=== PATIENT | female | born 1965 | race Caucasian/White ===

== ENCOUNTER 2018-03-15 14:48 | Outpatient (CLI) | payer BC, SELFPAY ==
--- NOTE | 2018-03-15 10:44 | DI.RAD_ITS ---
SYMPTOM/DIAGNOSIS: WRIST PAIN, M25.539 RIGHT WRIST: No fracture or other bony abnormality seen. The carpal bones are normally aligned. There are no significant degenerative changes or evidence of bony erosions. IMPRESSION: Negative right wrist.
--- NOTE | 2018-03-15 10:44 | DI.RAD_ITS ---
SYMPTOM/DIAGNOSIS: SHOULDER PAIN, M25.519 RIGHT SHOULDER: There is no significant A-C joint spurring. The glenohumeral joint is well maintained. No tendon or joint space calcifications are seen. IMPRESSION: Negative right shoulder
--- NOTE | 2018-03-15 10:44 | DI.RAD_ITS ---
SYMPTOM/DIAGNOSIS: WRIST PAIN, M25.539 LEFT WRIST: The bones are normally mineralized. No bony erosions are seen. The carpal bones are normally aligned. There is a positive ulnar variance. IMPRESSION: Positive ulnar variance
== END 2018-03-15 15:08 ==
PROVIDERS: PCP Emergency Medicine; Visit Provider Emergency Medicine
DX: M25.532 Pain in left wrist (principal); M25.832 Other specified joint disorders, left wrist; M25.531 Pain in right wrist; M25.511 Pain in right shoulder
CPT/HCPCS: 73030; 73110

== ENCOUNTER 2018-11-22 09:16 | Outpatient (CLI) | payer BC, SELFPAY ==
[2018-11-22 13:03] LABS: Calculated LDL 163 mg/dL; Cholesterol 232 mg/dL (50-200); HDL Cholesterol 57 mg/dL (40-60); Triglyceride 60 mg/dL (30-150)
== END 2018-11-22 09:36 ==
PROVIDERS: PCP Emergency Medicine; Visit Provider Emergency Medicine
DX: Z00.00 Encounter for general adult medical examination without abnormal findings (principal); Z13.220 Encounter for screening for lipoid disorders
CPT/HCPCS: 36415; 80061; 83721

== ENCOUNTER 2018-11-22 13:21 | Outpatient (REF) | payer BC, SELFPAY ==
--- NOTE | 2018-11-22 11:45 | PAPFT_PTH ---
PATIENT: Rahel Crow LOC: [facility] U#:[id number] AGE/SX: 53/F ROOM: RE11/22/[address]: MED Rudolph : 1965 BED: DIS: 11/22/2018 SPEC #: [id number] RECD: 11/22/18 17:45 STATUS: SUZI REQ #: [id number] KENYA: 11/22/18 11:[address]: Heidi Hernandez DEPT: [facility] Cytology RECD BY: Harriett Doherty ENTERED: 11/22/18 17:46 SP TYPE: PAPFT SAMEER DR: Aftab Hernandez, Tissues: 1 - CX/ENDOCX FOR PAP SMEARS Procedures: PAP THIN PREP/UVM Screening HPV DNA PROBE Comments: [id number]
[2018-11-24 15:27] LABS: Chlamydia Result Negative; GC Result Negative; Specimen Description CERVIX
== END 2018-11-22 13:41 ==
LOC: LBN 13:21
PROVIDERS: PCP Emergency Medicine; Visit Provider Nurse Practitioner Family
DX: Z11.3 Encounter for screening for infections with a predominantly sexual mode of transmission (principal); Z12.4 Encounter for screening for malignant neoplasm of cervix; Z11.51 Encounter for screening for human papillomavirus (HPV)
CPT/HCPCS: 87491; 87591; 88142; 87624

== ENCOUNTER 2019-01-04 01:18 | Outpatient (CLI) | payer BC, SELFPAY ==
--- NOTE | 2019-01-04 13:50 | DI.MAMMO_ITS ---
EXAM: MAMMO SCREENING CLINICAL HISTORY: screening,z12.31,encounter for general adult med exam,Z00.00. TECHNIQUE: Mammograms were interpreted according to the usual protocol including computer analysis w [facility] CAD system, tomosynthesis and C-view imaging. COMPARISON: No exams were available for comparison FINDINGS: The breasts are heterogeneously dense. No dominant mass or clumped microcalcification identified in either breast. There is an area of nodularity projected in the medial aspect of left breast on CC view. Additional mammographic views requested to include CC spot compression view. Breast ultrasound recommended as w ell. IMPRESSION: Additional mammographic views of the left breast and left breast ultrasound requested as described ab manjit to evaluate an area of nodularity identified on today's baseline examination. Category 0. Breast density category C. BI-RADS Cat 0 - Assessment Incomplete: Need additional imaging evaluation. Breast Density - Category C - Heterogeneously dense.
== END 2019-01-04 01:38 ==
PROVIDERS: PCP Emergency Medicine; Visit Provider Emergency Medicine
DX: Z00.00 Encounter for general adult medical examination without abnormal findings (principal); Z12.31 Encounter for screening mammogram for malignant neoplasm of breast; R92.8 Other abnormal and inconclusive findings on diagnostic imaging of breast
CPT/HCPCS: 77063; 77067

== ENCOUNTER 2019-01-11 01:24 | Outpatient (CLI) | payer BC, SELFPAY ==
--- NOTE | 2019-01-11 09:12 | DI.MAMMO_ITS ---
EXAM: MG MAMMO SCREEN CALL BACK UNI CLINICAL HISTORY: NODULARITY PROJECTED IN MEDIAL ASPECT LT BREAST. TECHNIQUE: Additional images are interpreted according to the usual protocol including tomosynthesis and 2D imaging. FINDINGS: The breast tissue is of moderate radiodensity. Very small, well-circumscribed ovoid density is noted in the medial portion of the left breast. There are no suspicious calcifications. IMPRESSION: Small density medial left breast. Further evaluation with ultrasound is recommended. BI-RADS Cat 3 - 6 month - Probably Benign Finding: Recommend follow-up mammography in 6 months. Breast Density - Category B - Scattered areas of fibroglandular density.
--- NOTE | 2019-01-11 09:22 | DI.US_ITS ---
EXAM: US BREAST LT LIMITED CLINICAL HISTORY: NODULARITY PROJECTED IN MEDICAL ASPECT LT BREAST. TECHNIQUE: Ultrasound performed using standard protocol. FINDINGS: The left breast ultrasound does not demonstrate discrete area of nodularity or cyst in the medial por tion of the left breast. IMPRESSION: Follow-up evaluation of this patient with repeat mammograms and if appropriate, ultrasound in 6 month s is recommended.
== END 2019-01-11 01:44 ==
PROVIDERS: PCP Emergency Medicine; Visit Provider Emergency Medicine
DX: Z12.31 Encounter for screening mammogram for malignant neoplasm of breast (principal); R92.8 Other abnormal and inconclusive findings on diagnostic imaging of breast; N60.82 Other benign mammary dysplasias of left breast
CPT/HCPCS: 76642; 77063; 77067

== ENCOUNTER 2019-07-06 02:07 | Outpatient (CLI) | payer MEDICAID, SELFPAY ==
--- NOTE | 2019-07-06 06:30 | DI.MAMMO_ITS ---
EXAM: MG MAMMO DIAGNOSTIC UNI CLINICAL HISTORY: follow up abnormal mammo,6 MO F/U, R92.8 TECHNIQUE: Mammograms were interpreted according to the usual protocol including computer analysis w [employer] CAD system, tomosynthesis and C-view imaging. COMPARISON: January 2019 FINDINGS: Today's unilateral left breast mammogram was obtained to follow a well-circumscribed area of nodulari ty of the medial aspect of left breast seen on prior examination of January 2019. There has been no interval change in appearance in comparison with the prior study. No new mass or clumped microcalcif ication identified in the left breast. IMPRESSION: No specific evidence of malignancy at this time. I would suggest that routine screening examinations resume with a bilateral mammogram in 6 months. BI-RADS Cat 3 - 6 month - Probably Benign Finding: Recommend follow-up mammography in 6 months Breast Density - Category B - Scattered areas of fibroglandular density
== END 2019-07-06 02:27 ==
PROVIDERS: PCP Emergency Medicine; Visit Provider Emergency Medicine
DX: Z12.31 Encounter for screening mammogram for malignant neoplasm of breast (principal); R92.8 Other abnormal and inconclusive findings on diagnostic imaging of breast; N60.82 Other benign mammary dysplasias of left breast
CPT/HCPCS: 77061; 77065; G0279

== ENCOUNTER 2019-11-20 01:03 | Outpatient (CLI) | payer OTHER, SELFPAY ==
--- NOTE | 2019-11-20 15:45 | DI.MRI_ITS ---
EXAM: MR THORACIC SPINE WO CLINICAL HISTORY: chronic thoracic back pain,g89.29,m54.6. TECHNIQUE: Multiplanar multisequence MRI of the Thoracic spine was performed. CONTRAST MATERIAL: IV noncontrast COMPARISON: No exams were available for comparison FINDINGS: Bones: The vertebral body heights are well maintained. Alignment is satisfactory. The signal characte ristics are unremarkable. Cord: The thoracic cord is normal size and signal intensity. No intrinsic cord lesion is present. Co nus medullaris appears normal. Discs: No disc herniation or bulge is present. There are minimal endplate osteophytes. Soft tissues: Normal. IMPRESSION: Minimal degenerative changes. DATA REPOSITORY:
== END 2019-11-20 01:23 ==
PROVIDERS: PCP Emergency Medicine; Visit Provider Emergency Medicine
DX: M54.6 Pain in thoracic spine (principal); G89.29 Other chronic pain; M47.818 Spondylosis without myelopathy or radiculopathy, sacral and sacrococcygeal region
CPT/HCPCS: 72146

== ENCOUNTER 2020-07-03 08:26 | Outpatient (CLI) | payer MEDICAID, SELFPAY ==
[2020-07-04 14:17] LABS: COVID-19 RT-PCR UVMMC Result Negative (Negative)
== END 2020-07-03 08:27 | disposition home or self-care (01) ==
PROVIDERS: PCP Emergency Medicine; Visit Provider Emergency Medicine
DX: Z20.822 Contact with and (suspected) exposure to COVID-19 (principal)
CPT/HCPCS: U0003

== ENCOUNTER 2020-10-03 15:34 | Outpatient (REF) | payer MEDICAID, SELFPAY ==
[2020-10-03 15:44] LABS: Abs Immature Grans 0.01 10^3/uL (0.0-0.06); Absolute Basophil Count 0.04 10^3/uL (0.0-0.2); Absolute Eosinophil Count 0.18 10^3/uL (0.0-0.7); Absolute Lymphocyte Count 1.88 10^3/uL (1.2-3.4); Absolute Monocyte Count 0.59 10^3/uL (0.1-0.8); Absolute Neutrophil Count 2.24 10^3/uL (1.2-6.7); Basophils % 0.8; Eosinophils % 3.6; HCT 38.2 % (36.0-46.0); HGB 12.7 g/dL (11.2-15.7); Immature Grans % 0.2; Lymphocytes % 38.1; MCH 30.7 pg (27.0-33.0); MCHC 33.2 % (32.0-36.0); MCV 92.3 fL (80-95); MPV 11.3 fL (8.0-11.0); Monocytes % 11.9; Neutrophils % 45.4; Nucleated RBC 0 %; Platelet Count 205 10^3/uL (130-400); RBC 4.14 10^6/uL (3.93-5.22); RDW 12.4 % (11.7-14.6); WBC 4.94 10^3/uL (4.4-10.8)
== END 2020-10-03 15:35 | disposition home or self-care (01) ==
LOC: LBN 15:34
PROVIDERS: Surgery; PCP Emergency Medicine; Visit Provider Family Medicine
DX: K51.911 Ulcerative colitis, unspecified with rectal bleeding (principal)
CPT/HCPCS: 85025; 86140

== ENCOUNTER 2020-10-04 02:25 | Outpatient (CLI) | payer MEDICAID, SELFPAY ==
[2020-10-04 08:35] LABS: C-Reactive Protein 0.09 mg/dL (0.0-0.3)
[2020-10-08 18:58] LABS: Calprotectin 83.2 mcg/g
== END 2020-10-04 02:26 | disposition home or self-care (01) ==
LOC: LBO 02:26
PROVIDERS: PCP Emergency Medicine; Visit Provider Surgery
DX: K51.911 Ulcerative colitis, unspecified with rectal bleeding (principal)
CPT/HCPCS: 36415; 83993; 86140

== ENCOUNTER 2020-11-01 06:21 | Day surgery (SDC) | payer MEDICAID, SELFPAY ==
--- NOTE | 2020-10-31 21:44 | W.PM.HP.N ---
Date of service: 11/01/20 Time of Service: 07:30 Assessment and Plan Assessment and plan (1) Tobacco use disorder: Status: Acute (2) Family history of colon cancer: Status: Acute (3) Ulcerative colitis with rectal bleeding: Status: Acute (4) Rectal bleeding: Status: Acute Assessment and plan: pt had a CE at [facility] in 2019 that was essentially nl. There were some chronic changes from UC, but these were very mild. Bx were done and reviewed. B/c of her return of s/s, and nl labs, I think it would be prudent to do direct visualization and Bx. She is here today for flex sig and Bx Risks include but are not limited to: bleeding, infection, perforation of colon. This would necessitate emergency surgery to repair the damage w/ possible ostomy; and other associated complications w/ the required surgery. Also complications of anesthesia including aspiration, VT/CVA/. further recommendations to follow based on findings. More enemas vs Entocort vs other History of Present Illness Consults Consult date: 11/01/20 Narrative: Pt notes that over the past two weeks- she was feeling well for about 10 days after cmopletion of the enemas, but now she is having more diarrhea and bleeding and feels like her s/s are returning. She has been trying to work on her stress. Today she is feeling OK. minimal bleeding adn mucous. no changes in meds or health status and stable for procedure. Review of Systems All systems reviewed & are unremarkable except as noted in HPI and below PFSH Medical History Annual visit for general adult medical examination with abnormal findings Anxiety Chronic thoracic back pain (12/01/17) work related History of ulcerative colitis Rectal bleeding Family History Mother , 73 Stroke Father Essential hypertension Sister No problems noted. Brother , 48 Cancer Colon cancer Maternal Grandfather No problems noted. Paternal Grandfather Asthma Paternal Grandmother Heart disease Paternal Grandmother No problems noted. Sister No problems noted. Son No problems noted. Son No problems noted. 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 [employer] Pets and animals: No Sexually active: No Current gender identity: decline to answer What is your relationship status?: refused to answer How often do you talk on the phone with friends or family?: decline to answer How often do you get together with friends or relatives?: decline to answer How often do you attend anabaptist or jainism services?: decline to answer Do you belong to any clubs or organized social groups?: decline to answer Panel score (0-1 are the most socially isolated patients): 0 What type of physical activity do you participate in: running and yoga Duration: 45-60 minutes/day Frequency: 5-6 times per week Eileen/Orthodox: No preference Special eileen needs: No Seatbelt use: always Helmet use: Yes Helmet use: sometimes Drive intox or ride w/intox 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 Do you feel safe at home: Yes Do you feel safe in your relationship?: Yes Meds Allergies and Home Medications Allergies Allergy/AdvReac Type Severity Reaction Status Date / Time iodine Allergy Intermediate burning Verified 11/01/20 06:37 and pain in joints Home Medications Medication Instructions Recorded Confirmed Type Unknown [No Known Home Meds] 10/23/20 11/01/20 History Exam Resp Effort & Inspection: normal respiratory effort and able to speak in complete sentences Auscultation: clear to auscultation bilaterally Cardio Rate: regular rate Rhythm: regular rhythm GI Other: mild crampy abdominal pain. no distention. ANDREE not done
[2020-11-01 06:27] VITALS: BP 98/56; PULSE 65; RESP 16; TEMP 36.1; O2SAT 99
[2020-11-01] MEDS: Lactated Ringers 1,000 ML 80 ML IV (07:10)
--- NOTE | 2020-11-01 07:25 | W.ANESPRE ---
General Info Date of Service Date Performed: 11/01/20 Height: 5 ft 2 in Weight: 58.3 kg Body Mass Index (BMI): 23.5 Surgical Procedure: Operation Date: 11/01/20 07:40 Proposed Procedures Side Surgeon p Flexible Sigmoidoscopy with bxs Loretta Serrano, DO Actual Procedures Side Surgeon p Flexible Sigmoidoscopy with bxs Loretta Serrano, DO Pre-Op Diagnosis Post-Op Diagnosis DIARRHEA AND RECTAL BLEEDING Meds Allergies and Home Medications Allergies Allergy/AdvReac Type Severity Reaction Status Date / Time iodine Allergy Intermediate burning Verified 11/01/20 06:37 and pain in joints Home Medication Medication Instructions Recorded Unknown [No Known Home Meds] 10/23/20 Current Visit Medications: Current Medications Generic Name Dose Route Start Last Admin Trade Name Freq PRN Reason Stop Dose Admin Hyoscyamine Sulfate 0.125 mg 10/31/20 21:43 Hyoscyamine 0.125 Mg Sl/Oral/Chew SL DIRECTED PRN Ringer's Solution 1,000 mls @ 80 mls/hr 11/01/20 06:00 11/01/20 07:10 IV 11/30/20 23:59 80 mls/hr INFUSION FARHAD Administration IV Miscellaneous Supplies 1 each 11/01/20 06:00 Iv Access IV 11/30/20 23:59 DIRECTED FARHAD Ondansetron HCl 4 mg 10/31/20 21:43 Ondansetron 4 Mg/2 Ml Vial IVP Q4H PRN PRN Nausea / Vomiting Sodium Biphosphate/Sodium Phosphate 133 ml 11/01/20 06:00 11/01/20 06:46 Na Phosphate Enema 133 Ml Btl TX 11/01/20 23:59 1 btl .SAMEDAY FARHAD Administration Sodium Chloride 0 ml 11/01/20 06:00 Normal Saline Flush 10 Ml Syr IV 11/30/20 23:59 PRN PRN Sodium Chloride 0 ml 11/01/20 06:00 Normal Saline 10 Ml Vial IJ 11/30/20 23:59 DIRECTED PRN Sterile Water 0 ml 11/01/20 06:00 Water,Injection,Sterile 10 Ml Vial IJ 11/30/20 23:59 DIRECTED PRN PFSH Active Problems Active Problems: Problem Status Onset Code Tobacco use disorder F17.200 Family history of colon cancer Z80.0 Ulcerative colitis with rectal bleeding K51.911 Rectal bleeding K62.5 Anxiety F41.9 Chronic thoracic back pain 12/01/17 M54.6, G89.29 Medical History Medical History Annual visit for general adult medical examination with abnormal findings Anxiety Chronic thoracic back pain (12/01/17) work related History of ulcerative colitis Rectal bleeding Tobacco Smoking/Tobacco Use Status: Former Tobacco Use Passive smoking exposure: Yes Alcohol Alcohol Intake: former Substance Use Substance use: Never Substance use type: does not use Counseling given: Yes Vital Signs and Lab Results Vital Signs Most Recent Vital Signs in EMR: Most Recent Vital Signs Temp Pulse Resp BP Pulse Ox 36.1 C L 65 16 98/56 L 99 11/01/20 06:27 11/01/20 06:27 11/01/20 06:27 11/01/20 06:27 11/01/20 06:27 Point of Care Results Point of Care Results: POC- Test(urine) Negative 11/01/20 07:14 Lab Results Blood Type / Crossmatch: No Data to Display Complete Blood Count: White Blood Count 4.94 10^3/uL (4.4-10.8) 10/03/20 14:25 10/03/20 Red Blood Count 4.14 10^6/uL (3.93-5.22) 10/03/20 14:25 10/03/20 Hemoglobin 12.7 g/dL (11.2-15.7) 10/03/20 14:25 10/03/20 Hematocrit 38.2 % (36.0-46.0) 10/03/20 14:25 10/03/20 Platelet Count 205 10^3/uL (130-400) 10/03/20 14:25 10/03/20 Complete Metabolic Panel: C-Reactive Protein 0.09 mg/dL (0.0-0.3) 10/04/20 07:08 10/04/20 Liver Function Panel: No Data to Display Coagulation Panel: No Data to Display Cardiac Panel: No Data to Display Arterial Blood Gas: No Data to Display Venous Blood Gas: No Data to Display Pancreas Panel: No Data to Display Thyroid Panel: No Data to Display Infectious Disease: No Data to Display Blood Cultures: No Data to Display Toxicology Panel: No Data to Display Anesthesia Assessment and Plan Anesthesia History Personal History: No History of Anesthesia Complications Family History: No Family History of Anesthesia Complications Exercise Tolerance Exercise Tolerance: Metabolic Equivalents>4 Pertinent Negatives Pertinent Negatives: No Symptoms of GERD, No Major Cardiovascular Symptoms or Complaints, No Major Pulmonary Symptoms or Complaints, No History of CVA/TIA and Other (Sz 20 years ago, hypoglycemia) Cardiac & Pulmonary Exam Cardiac Exam: Normal S1/S2 Heart Sounds Pulmonary Exam: Clear Bilateral Breath Sounds Airway Exam Known Difficult Airway: No Mallampati Class: 1 Mouth Opening: Normal (> 3cm) Thyromental Distance: Greater than 3 cm Neck Range of Motion: Full ROM Neck Circumference: Normal Teeth Condition: Normal Dentition Airway Comments: Misaligned and broken teeth ASA Classification ASA Score: ASA 2 Emergency Case?: No NPO Status NPO Status: NPO Clears >2 hours, Solids >8 hours Anesthesia Plan Resuscitation Status: Full Code Anesthesia Technique: General Anesthesia Airway Planned: Natural Airway Monitors Used: Standard Monitors
[2020-11-01 07:27] VITALS: BMI 23.5
--- NOTE | 2020-11-01 07:50 | BOWEL_PTH ---
PATIENT: Rahel Crow LOC: [facility] U#:[id number] AGE/SX: 55/F ROOM: RE11/01/[address]: Loretta Serrano : 1965 BED: DIS: 11/01/2020 SPEC #: [id number] RECD: 11/01/20 12:20 STATUS: SUZI RE #: [id number] KENYA: 11/01/20 07:[address]: Loretta Serrano DEPT: Surgical Specimen RECD BY: Harriett Doherty ENTERED: 11/01/20 12:21 SP TYPE: Bowel OTHR DR: Aftab Hernandez DO Tissues: 1 - BIOPSY BOWEL 2 - BIOPSY BOWEL 3 - BIOPSY BOWEL 4 - BIOPSY BOWEL Procedures: GROSS AND MICRO LEVEL 4 Comments: [id number]
--- NOTE | 2020-11-01 08:03 | W.COLOREPORT ---
Date of service: 11/01/20 Time of Service: 08:03 Colonoscopy Report Date of procedure: 11/01/20 Pre-op diagnosis general: UC/fam hx CRC/failied outpt conservative management Post-op diagnosis procedure note: other (chronic UC ) Procedure: flex sig w/ bx Surgeon: Loretta Serrano Anesthesia Type: General:No Airway Estimated blood loss (mL): 1 Pathology: other Complications: None Disposition: same day Prep: Other (fleets ) Retraction Time: 4 mins Procedure Description: After informed consent was obtained the patient was taken to the procedure room and placed in a left decubitous position. Monitors were applied and a time out was done. The patients name, date of , procedure, allergies to medications and metal in their body was reviewed. The patient was then sedated. Once sedated and comfortable a rectal exam was done. External exam was normal. Internal exam revealed a normal sphincter tone and no palpable masses. The scope was then introduced and retrofelexed. No internal hemorrhoids were identified. The sigmoid flexure. The prep was good. The scope was then slowly retracted over 4 minutes back into the rectum. No polyps or diverticula. There is some mild inflammation- the worst is concentrated in the rectal region- but does extend all the way up to the sigmoid flexure. mult bx are taken-all specimens retrieved and no bleeding is noted. The scope was removed and the patient was woken up and taken back to Same day surgery in stable condition. The patient tolerated the procedure well and there were no immediate complications. She failed with Clint enemas and will be started on 3 mg of Entocort for 10 days. Follow up: The patient should follow up in 2 years unless they develop changes in bowel habits or other new gastrointestinal complaints.
--- NOTE | 2020-11-01 08:07 | PDOC.DSDIS_ITS ---
Discharge Plan Disposition Patient Disposition: HOME Condition: Good Discharge Details Reason For Visit: flex sig Attending Provider: Loretta Serrano Primary Care Provider: Aftab Hernandez Home Meds and New Rx's Prescriptions: New budesonide [Entocort EC] 3 mg capsule,delayed,extend.release 3 mg PO DAILY Qty: 10 RF: 0 Discharge Instructions Additional Instructions: DSU Colonoscopy Post- Op Instructions Instructions for Everyone who is given Anesthesia: For your safety, please do the following for the next twenty-four (24) hours: *Do Not operate a motor vehicle (car, truck, motorcycle, etc.) *Do Not drink alcoholic beverages or use any recreational drugs for the first 24 hours or while taking pain medications. The medications in your body may have a reaction that can be dangerous. *Do Not make any important decisions or sign any important papers. Findings: active UC- mild start entocort PO for 10 days Follow up:2-3 wks 1. No lifting over 20 pounds or strenuous activity for the first 24 hours after your procedure. After 24 hours there are no restrictions on your activity but you may feel fatigued for a few days. 2. After you arrive home you may have a light meal and return to your normal diet as you can tolerate it without feeling sick to your stomach. 3. You may have a bloated, gaseous feeling in your belly (abdomen) after a colonoscopy. Passing gas and belching will help. Walking or lying down on your left side with your knees flexed may relieve the discomfort. Call the office at [phone] (Office) or [phone] (Hospital) right away if you notice any of the following: a.Vomiting of blood or ?coffee ground stools?. b.Rectal bleeding 1Tbsp, blood clots or continuous bleeding. c.Severe belly (abdominal) pain. d.A hard distended belly (abdomen) and an inability to pass gas. 4. Please don?t expect to have a normal BM (bowel movement) for 2-3 days after your procedure. 5. If there are questions regarding the findings of your procedure, please contact your doctor 6. If you are unable to contact your doctor with a problem, contact the hospital at [phone]. 7. Continue all your regular medications unless directed otherwise. I understand the above instructions and have no questions. Signature of Patient or Adult Escort Name of Responsible Adult Escort Signature of Nurse Date/Time Stand Alone Forms: Anesthesia Discharge Inst., DSU Post Sigmoidoscopy, Leoncio Mc ([facility]) Referrals: Loretta Serrano DO [OSTEOPATHIC DOCTOR] - 11/18/20 10:30 am Activity:: see above Diet:: see above Discharge Orders Discharge Orders: Discharge Order (Routine); Ordered 10/31/20 Ordered By: Loretta Serrano DS: Diagnosis Discharge Diagnosis (1) Tobacco use disorder: Status: Acute (2) Family history of colon cancer: Status: Acute (3) Ulcerative colitis with rectal bleeding: Status: Acute (4) Rectal bleeding: Status: Acute
[2020-11-01 08:10] VITALS: BP 101/62; PULSE 72; RESP 16; TEMP 36.2; O2SAT 96
--- NOTE | 2020-11-01 08:10 | W.ANESPOSTOP ---
Postoperative Evaluation Date, Time and Location Date Performed: 11/01/20 Time Performed: 08:10 Patient Location: Day Surgery Unit Vital Signs Most Recent Imported Vital Signs: Most Recent Vital Signs Temp Pulse Resp BP Pulse Ox 36.1 C L 65 16 98/56 L 99 11/01/20 06:27 11/01/20 06:27 11/01/20 06:27 11/01/20 06:27 11/01/20 06:27 Most Recent Manually Entered Vital Signs: Adult Blood Pressure: 101/63 Heart Rate: 72 Respirations: 16 Oxygen Saturation (%): 96 Temperature (C): 36.2 C Pain Score (0-10 Scale): 0 Pain Score Most Recent Pain Score: Most Recent Pain Score Pain Level 0 11/01/20 06:27 Assessment Mental Status: Awake (Alert & Oriented to Patient Baseline) Airway and Respiratory Function: Patent airway with normal (patient baseline) respiratory exam Cardiovascular Function: Hemodynamically Stable Hydration Status: Adequately Hydrated Nausea & Vomiting: No Nausea or Vomiting Pain: Pt. Denies Any Pain Peripheral Nerve Block: Patient did not receive a nerve block
[2020-11-01 08:11] VITALS: BP 101/63; PULSE 72; RESP 16; TEMPC 36.2; O2SAT 96
[2020-11-01 08:45] VITALS: PULSE 79; RESP 18; TEMP 36.4; O2SAT 98
== END 2020-11-01 09:00 | disposition home or self-care (01) ==
PROVIDERS: PCP Emergency Medicine; Visit Provider Surgery
PROC: 0DJD8ZZ Inspection of Lower Intestinal Tract, Via Natural or Artificial Opening Endoscopic (ICD-10-PCS; CPT 45330; principal; 2020-11-01 07:30)
DX: K51.911 Ulcerative colitis, unspecified with rectal bleeding (principal); Z80.0 Family history of malignant neoplasm of digestive organs; F17.210 Nicotine dependence, cigarettes, uncomplicated; K62.89 Other specified diseases of anus and rectum
CPT/HCPCS: 45380; 88305; J2001

== ENCOUNTER 2020-11-26 03:16 | Outpatient (CLI) | payer MEDICAID, SELFPAY ==
--- NOTE | 2020-11-26 09:15 | DI.MAMMO_ITS ---
Exam(s) MAMMO SCREENING EXAM: MAMMO SCREENING CLINICAL HISTORY: SCREENING, Z12.39. TECHNIQUE: Bilateral full field digital CC and MLO mammographic images were obtained with 3D tomosyn thesis and utilizing computer aided detection (CAD). COMPARISON: Prior mammograms dating back to January 1019, the most recent being June 2019. Breast ultrasound 1018 was FINDINGS: There are no CAD designations Previously described noncalcified nodular density located posteromedially in the left breast is again noted, unchanged from January 2019 and therefore most probably benign. Is probably a benign lymph n ode given that it was apparently not evident on prior ultrasound examination. There are no new spiculated masses nor malignant appearing microcalcification groups. There is no significant architectural distortion nor skin thickening-retraction. IMPRESSION: Stable benign findings. No radiographic evidence of malignancy BI-RADS Category 2 - Benign Findings Breast Density - Category B - Scattered areas of fibroglandular density Breast density Category C or D implies that the patient has dense breast tissue. Dense breast tissue can make it harder to find cancer on a mammogram. Dense breast tissue is also associated with an incr eased risk of breast cancer. This information about the result of the mammogram report was provided to the patient to raise their awareness. Use this report when you speak with the patient about their risks for breast cancer, which includes their family history. At that time, you may recommend additional screening tests (Ultrasoun d or MRI) as these tests may add significant information. A negative radiographic report should not delay biopsy if a dominant or clinically suspicious mass is present. Up to ten percent of cancers are not identified on mammography. A negative report may reinforce clinical impression. Adenosis and dense breasts may obscure an underlying neoplasm. False positive reports average 6 to 10%. Patient will receive a letter notifying them of these results.
== END 2020-11-26 03:36 ==
PROVIDERS: PCP Emergency Medicine; Visit Provider Emergency Medicine
DX: R92.8 Other abnormal and inconclusive findings on diagnostic imaging of breast (principal); Z12.31 Encounter for screening mammogram for malignant neoplasm of breast
CPT/HCPCS: 77063; 77067

== ENCOUNTER 2020-12-02 04:06 | Outpatient (CLI) | payer MEDICAID, SELFPAY ==
[2020-12-02 15:26] LABS: C-Reactive Protein < 0.05 mg/dL (0.0-0.3)
== END 2020-12-02 04:07 | disposition home or self-care (01) ==
LOC: LBO 04:06
PROVIDERS: PCP Emergency Medicine; Visit Provider Surgery
DX: K51.911 Ulcerative colitis, unspecified with rectal bleeding (principal)
CPT/HCPCS: 36415; 86140

== ENCOUNTER 2020-12-19 12:31 | Outpatient (REF) | payer MEDICAID, SELFPAY ==
[2020-12-23 22:22] LABS: Calprotectin 278 mcg/g
== END 2020-12-19 12:32 | disposition home or self-care (01) ==
LOC: LBN 12:31
PROVIDERS: PCP Emergency Medicine; Visit Provider Surgery
DX: K51.911 Ulcerative colitis, unspecified with rectal bleeding (principal); K62.5 Hemorrhage of anus and rectum; Z80.0 Family history of malignant neoplasm of digestive organs
CPT/HCPCS: 83993

== ENCOUNTER 2021-01-22 00:58 | Outpatient (CLI) | payer MEDICAID, SELFPAY ==
[2021-01-22 10:11] LABS: Abs Immature Grans 0.01 10^3/uL (0.0-0.06); Absolute Basophil Count 0.04 10^3/uL (0.0-0.2); Absolute Eosinophil Count 0.13 10^3/uL (0.0-0.7); Absolute Lymphocyte Count 1.53 10^3/uL (1.2-3.4); Absolute Monocyte Count 0.55 10^3/uL (0.1-0.8); Absolute Neutrophil Count 3.63 10^3/uL (1.2-6.7); Basophils % 0.7; Eosinophils % 2.2; HCT 38.8 % (36.0-46.0); HGB 12.8 g/dL (11.2-15.7); Immature Grans % 0.2; MCH 30.2 pg (27.0-33.0); MCV 91.5 fL (80-95); MPV 10.5 fL (8.0-11.0); Monocytes % 9.3; Neutrophils % 61.6; Nucleated RBC 0 %; Platelet Count 234 10^3/uL (130-400); RBC 4.24 10^6/uL (3.93-5.22); RDW 12.5 % (11.7-14.6); RDW-SD 41.9 fL; WBC 5.89 10^3/uL (4.4-10.8)
[2021-01-22] MEDS: Omnipaque 350 MG/ML 50 ML BTL PO (10:17)
[2021-01-22 10:18] LABS: CREATININE 0.9 mg/dL (0.55-1.02)
[2021-01-22] MEDS: Breeza Beverage 473 ML BTL PO (10:18)
[2021-01-22 10:20] LABS: C-Reactive Protein < 0.05 mg/dL (0.0-0.3)
--- NOTE | 2021-01-22 11:41 | DI.CT_ITS ---
Exam(s) CT ABDOMEN PELVIS W EXAM: CT ABDOMEN PELVIS W CLINICAL HISTORY: refractory IBD,FAMILY H/O COLON CA,ULCERATIVE COLITIS WITH RECTAL BLEEDING TECHNIQUE: Imaging Protocol: Axial computed tomography images with coronal and sagittal reformatted images were created and reviewed CONTRAST MATERIAL: Intravenous: Omnipaque 350 Contrast volume:81 mL Oral: Yes COMPARISON: No exams were available for comparison FINDINGS: ABDOMEN: Lung Bases: Normal where visualized. Liver: Normal density. No measurable mass. Portal, Superior Mesenteric, and Splenic Veins: Unremarkable. Gallbladder and Biliary Tract: No radiodense calculus or dilation. Pancreas: Normal density, no abnormal calcifications or inflammatory process. Spleen: Normal. Adrenals: No masses seen. Kidneys: Normal size, contour and axis. No radiodense stones or obstructive uropathy. No masses seen. Abdominal Aorta: Abdominal portion non-dilated. Bowel: No obstruction or bowel wall thickening. No evidence of appendicitis. Peritoneal Cavity: No ascites, collection or mesenteric inflammatory response. No free air. Lymph Nodes: Within normal limits. Bones: Within normal limits for the patient's age. Soft Tissues: Unremarkable. PELVIS: Bladder: Symmetric distention, no gross wall thickening. Reproductive Organs: There is a 5 cm x 6.2 cm x 5.1 cm mass in the posterior body of the uterus likel y reflecting a fibroid. Lymph Nodes: Within normal limits. Bones: Within normal limits for the patient's age. IMPRESSION: 1. No acute abdominal or pelvic process. 2. 5 x 6.2 x 5.1 cm uterine mass likely reflecting a fibroid. Pelvic ultrasound may be obtained for further evaluation. Incidental Findings RADIATION DOSE DELIVERED: 588.08mGy.cm Total DLP DATA REPOSITORY: All CT scans at this facility are submitted to the National Radiology Data Registry (NRDR) Dose Index Registry (DIR) with the [employer] (ACR). RADIATION OPTIMIZATION: All CT scans at this facility use at least one of these dose optimization te chniques: automated exposure control; mA and/or kV adjustment per patient size (includes targeted exa ms where dose is matched to clinical indication); or iterative reconstruction.
[2021-01-22] MEDS: Omnipaque 350 MG/ML 100 ML BTL 81 ML IJ (11:42)
== END 2021-01-22 01:18 ==
PROVIDERS: PCP Emergency Medicine; Visit Provider Surgery
DX: K51.911 Ulcerative colitis, unspecified with rectal bleeding (principal); Z80.0 Family history of malignant neoplasm of digestive organs; R19.09 Other intra-abdominal and pelvic swelling, mass and lump
CPT/HCPCS: 74177; 82565; 85025; 86140; J3490; Q9967

== ENCOUNTER 2021-02-06 12:34 | Outpatient (REF) | payer MEDICAID, SELFPAY | END 2021-02-06 12:35 | disposition home or self-care (01) | LOC: LBN 12:34 | PROVIDERS: PCP Emergency Medicine; Visit Provider Obstetrics & Gynecology | DX: R10.2 Pelvic and perineal pain (principal) | CPT/HCPCS: 87480; 87510; 87660 ==

== ENCOUNTER 2021-05-27 01:57 | Outpatient (CLI) | payer MEDICAID, SELFPAY ==
--- NOTE | 2021-05-27 06:30 | DI.US_ITS ---
Exam(s) US PELVIS EXAM: US PELVIS CLINICAL HISTORY: fibroid,D21.9 TECHNIQUE: Ultrasound performed using standard protocol. COMPARISON: US US BREAST LT LIMITED from 01/11/2019 FINDINGS: Pelvic ultrasound was performed transabdominally only as the patient refused transvaginal scanning. Uterus measures 9.7 x 4.6 x 6.5 cm. There is a probable 7 cm in diameter midbody to fundal uterine f ibroid, this is not well visualized and other etiologies could be considered on the basis of the ultr asound appearance alone. Endometrial stripe is nonvisualized. Ovaries appear grossly unremarkable, right ovary measures 15 x 22 x 17 millimeters and left ovary arvind sures 12 x 10 x 15 millimeters. No free fluid in the cul-de-sac. Limited scanning of the kidneys is unremarkable. IMPRESSION: Examination is limited due to transabdominal scanning only. Probable large uterine fibroid. Additio nal evaluation with transvaginal scanning or MR may be considered if clinically appropriate for furth er characterization of apparent uterine mass.. DATA REPOSITORY:
== END 2021-05-27 02:17 ==
PROVIDERS: PCP Family Medicine; Visit Provider Obstetrics & Gynecology
DX: D25.9 Leiomyoma of uterus, unspecified (principal); D26.7 Other benign neoplasm of other parts of uterus
CPT/HCPCS: 76856

== ENCOUNTER → 2021-11-25 01:34 | Outpatient (CLI) | payer MEDICAID, SELFPAY ==
--- NOTE | 2021-11-25 06:45 | DI.US_ITS ---
Exam(s) US PELVIS TRANSVAGINAL EXAM: US PELVIS TRANSVAGINAL CLINICAL HISTORY: fibroid,D21.9, 6 MO F/U TECHNIQUE: Ultrasound performed using standard protocol. COMPARISON: US US PELVIS from 05/27/2021 FINDINGS: Pelvic ultrasound was performed transabdominally and transvaginally. The uterus measures 8.4 x 5.5 x 6.2 cm and contains a mass with appearance consistent with fibroid, this measures 6.1 x 5.1 x 3.6 cm in diameter. Prior examination of May 27 showed this to measure 6.6 x 5.4 x 4.2 cm. Endometrial stripe is about 3 millimeters in thickness and appears homogeneous. No free fluid in the cul-de-sac. The ovaries are nonvisualized on this examination. IMPRESSION: Stable solid uterine mass with appearance consistent with uterine fibroid. No other significant find ings. If there is clinical suspicion of other etiology for this mass, pelvic MRI could confirm or de ny the characterization of the mass as fibroid. DATA REPOSITORY:
== END ==
PROVIDERS: PCP Family Medicine; Visit Provider Obstetrics & Gynecology
DX: D25.9 Leiomyoma of uterus, unspecified (principal)
CPT/HCPCS: 76830; 76856

== ENCOUNTER 2021-11-25 12:32 | Outpatient (REF) | payer MEDICAID, SELFPAY ==
--- NOTE | 2021-11-25 09:35 | PAPFT_PTH ---
PATIENT: Rahel Crow LOC: [facility] U#:[id number] AGE/SX: 56/F ROOM: RE11/25/[address]: Mariella Krishna MD : 1965 BED: DIS: 11/25/2021 SPEC #: [id number] RECD: 11/25/21 12:51 STATUS: SUZI REBal #: [id number] KENYA: 11/25/21 09:[address]: Mariella Krishna DEPT: [facility] Cytology RECD BY: Harriett Doherty ENTERED: 11/25/21 12:52 SP TYPE: PAPFT SAMEER DR: Sona Edmond Tissues: 1 - CX/ENDOCX FOR PAP SMEARS Procedures: PAP THIN PREP/UVM Screening HPV DNA PROBE Comments: [id number]
== END 2021-11-25 12:33 | disposition home or self-care (01) ==
LOC: LBN 12:32
PROVIDERS: PCP Family Medicine; Visit Provider Obstetrics & Gynecology
DX: Z12.4 Encounter for screening for malignant neoplasm of cervix (principal); Z11.51 Encounter for screening for human papillomavirus (HPV)
CPT/HCPCS: 88142; 87624

== ENCOUNTER → 2022-01-12 01:22 | Outpatient (CLI) | payer MEDICAID, SELFPAY ==
--- NOTE | 2022-01-12 07:00 | DI.MAMMO_ITS ---
Exam(s) MAMMO SCREENING EXAM: MAMMO SCREENING CLINICAL HISTORY: screening,z12.39 TECHNIQUE: Mammograms were interpreted according to the usual protocol including computer analysis w [employer] CAD system, tomosynthesis and C-view imaging. COMPARISON: 2018 - 2020 FINDINGS: The breasts are composed of scattered fibroglandular densities, Breast Density category B. No suspicious masses or suspicious microcalcifications are seen. Stable benign nodule medial left br east. No skin thickening or abnormal axillary lymph nodes are seen. There has been no significant change from prior exams. IMPRESSION: BI-RADS Category 1, Negative mammogram Yearly screening mammography is recommended. Breast Density - Category B, scattered fibroglandular densities. A negative radiographic report should not delay biopsy if a dominant or clinically suspicious mass is present. Up to ten percent of cancers are not identified on mammography. A negative report may reinforce clinical impression. Adenosis and dense breasts may obscure an underlying neoplasm. False positive reports average 6 to 10%. Patient will receive a letter notifying them of these results.
== END ==
PROVIDERS: PCP Family Medicine; Visit Provider Obstetrics & Gynecology
DX: Z12.31 Encounter for screening mammogram for malignant neoplasm of breast (principal)
CPT/HCPCS: 77063; 77067

== ENCOUNTER → 2023-04-13 01:19 | Outpatient (CLI) | payer MEDICAID, SELFPAY ==
--- NOTE | 2023-04-13 12:54 | DI.MAMMO_ITS ---
Exam(s) MAMMO SCREENING EXAM: MAMMO SCREENING CLINICAL HISTORY: screening,z12.39. TECHNIQUE: Bilateral full field digital CC and MLO mammographic images were obtained with 3D tomosyn thesis and utilizing computer aided detection (CAD). COMPARISON: Prior mammograms were reviewed. FINDINGS: There has been no significant change in the appearance and distribution of the fibroglandular tissue. There are no CAD designations. There are no new spiculated masses nor malignant appearing microcalcification groups. Oval noncalcified nodular density in the left breast located 6 cm in from the nipple is unchanged fro m prior mammograms. There is no significant architectural distortion nor skin thickening-retraction. IMPRESSION: Stable benign-appearing findings. No radiographic evidence of malignancy. BI-RADS Category 2 - Benign Findings Breast Density - Category B - Scattered areas of fibroglandular density Breast density Category C or D implies that the patient has dense breast tissue. Dense breast tissue can make it harder to find cancer on a mammogram. Dense breast tissue is also associated with an incr eased risk of breast cancer. This information about the result of the mammogram report was provided to the patient to raise their awareness. Use this report when you speak with the patient about their risks for breast cancer, which includes their family history. At that time, you may recommend additional screening tests (Ultrasoun d or MRI) as these tests may add significant information. A negative radiographic report should not delay biopsy if a dominant or clinically suspicious mass is present. Up to ten percent of cancers are not identified on mammography. A negative report may reinforce clinical impression. Adenosis and dense breasts may obscure an underlying neoplasm. False positive reports average 6 to 10%. Patient will receive a letter notifying them of these results.
== END ==
PROVIDERS: PCP Family Medicine; Visit Provider Nurse Practitioner Family
DX: Z12.31 Encounter for screening mammogram for malignant neoplasm of breast (principal); R92.8 Other abnormal and inconclusive findings on diagnostic imaging of breast
CPT/HCPCS: 77063; 77067

== ENCOUNTER 2023-04-14 13:50 | Outpatient (REF) | payer MEDICAID, SELFPAY ==
--- NOTE | 2023-04-14 12:15 | SKI_PTH ---
PATIENT: Rahel Crow LOC: [facility] U#:[id number] AGE/SX: 57/F ROOM: RE04/14/[address]: Jeromy Rodriguez MD : 1965 BED: DIS: 04/14/2023 SPEC #: [id number] RECD: 04/14/23 17:23 STATUS: SUZI REBal #: [id number] KENYA: 04/14/23 12:[address]: Jeromy Rodriguez DEPT: Surgical Specimen RECD BY: Harriett Doherty ENTERED: 04/14/23 17:24 SP TYPE: FITO ESTRELLA DR: Sona Edmond Tissues: 1 - SKIN BIOPSY(SHAVE/PUNCH) Procedures: IMMUNOPEROXIDASE STAIN SKIN LEVEL 4 Comments: [id number]
== END 2023-04-14 13:51 | disposition home or self-care (01) ==
LOC: NCHCN 13:50
PROVIDERS: PCP Family Medicine; Visit Provider Otolaryngology
DX: L57.0 Actinic keratosis (principal)
CPT/HCPCS: 88305; 88361

== ENCOUNTER 2023-08-27 06:24 | Day surgery (SDC) | payer MEDICAID, SELFPAY ==
--- NOTE | 2023-08-26 19:13 | HPE_ITS ---
Assessment and Plan Assessment and plan (1) Encounter for screening colonoscopy: Status: Acute Assessment and plan: we reviewed the plan for a screening colonoscopy as well as the risks and benefits of the procedure. Rahel had oppurtunity to ask any questions and all of her expressed concerns were addressed. We will proceed with colonoscopy as planned. History of Present Illness History of Present Illness Chief Complaint: screening colonoscopy Narrative: 57 y/o female with history of ulcerative colitis and actinic keratosis presents for colonoscopy screening pre-op. Her last screening was in 2020, which was remarkable for proctitis. She reports a family history of colon cancer in her brother whom at the age of 48. She reports having loose stools and are irregular. She contributes this to diet. Denies any bloody or black tarry stools, abdominal pain, diarrhea or constipation. She denies constitutional symptoms. She denies chest pain, palpitations, dyspnea or dyspnea with exertion. She denies prior history or family history of adverse reactions or complications with anesthesia. The patient denies any history of stroke, [place], seizures, bleeding or clotting disorders. She denies having any implanted metal in her body. [facility] All Active Problems Encounter for screening colonoscopy (Acute) Skin lesion of face (Acute) Actinic keratosis of left cheek (Acute) Family history of colon cancer (Acute) Brother Dx at 47 Medical History History of tobacco use disorder 7.5 packyr hx, quit 2019 Fibroid ~5cm, stable on repeat sono 11/25/21 Abnormal mammogram Ulcerative colitis with rectal bleeding managed with entocort Surgical History Hx of tubal ligation Family History Mother , 73 Stroke Father , 77 Essential hypertension Sister Madhuri's thyroiditis Brother , 48 Cancer Colon cancer Maternal Grandfather No problems noted. Paternal Grandfather Asthma Paternal Grandmother Heart disease Paternal Grandmother No problems noted. Sister Diabetes Son No problems noted. Son No problems noted. Daughter No problems noted. 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 [place] Pets and animals: No Sexually active: No Current gender identity: decline to answer What is your relationship status?: refused to answer How often do you talk on the phone with friends or family?: decline to answer How often do you get together with friends or relatives?: decline to answer How often do you attend restorationism or quaker services?: decline to answer Do you belong to any clubs or organized social groups?: decline to answer Panel score (0-1 are the most socially isolated patients): 0 What type of physical activity do you participate in: running and yoga Duration: 45-60 minutes/day Frequency: 5-6 times per week Eileen/Scientologist: No preference Special eileen needs: No Seatbelt use: always Helmet use: Yes Helmet use: sometimes Drive intox or ride w/intox 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 Date GA/Weeks # Preg Succ Route Wgt Sex Labor Lgth Anesth esia Location Prov Complic 04/05/83 10/17/85 40 No vaginal 5 lb 1 oz Male 02/18/87 40 No vaginal 7 lb 14 oz Male 04/18/89 40 No vaginal 8 lb 14 oz Female Delivery Date: 10/17/85 Last Updated by: Mariella Krishna M.D. episiotmy Meds Allergies and Home Medications Allergies Allergy/AdvReac Type Severity Reaction Status Date / Time iodine Allergy Intermediate burning Verified 08/27/23 06:29 and pain in joints Exam Const General: cooperative, healthy appearing and not in acute distress Neck Neck: normal visual inspection, no lymphadenopathy and supple Resp Effort & Inspection: normal respiratory effort Auscultation: clear to auscultation bilaterally Cardio Jugular venous pressure: no JVD Rate: regular rate Rhythm: regular rhythm Heart Sounds: S1 normal and S2 normal GI Inspection: normal to inspection Palpation: soft, no guarding, no hernias and nontender Percussion: normal to percussion Auscultation: normal bowel sounds Neuro General: patient alert, patient awake and patient oriented x3 Psych Appearance: grossly normal
--- NOTE | 2023-08-26 19:15 | W.PM.DSUDISC ---
Date of service: 08/27/23 Time of Service: 08:01 Discharge Plan Disposition Patient Disposition: Home Condition: Good Discharge Details Reason For Visit: screening colonoscopy Attending Provider: Humble Hancock Primary Care Provider: Sona Edmond Home Meds and New Rx's Prescriptions: Discontinued bisacodyl [Dulcolax (bisacodyl)] 5 mg tablet,delayed release (DR/EC) 5 mg PO ONCE Qty: 4 0RF Rx Instructions: Colonoscopy Bowel Prep- Per Instructions polyethylene glycol 3350 17 gram/dose powder 238 g PO ONCE Qty: 238 0RF Rx Instructions: Colonoscopy Bowel Prep- Per Instructions Discharge Instructions Instructions: Colorectal Polyps (GEN) Additional Instructions: Rahel, we were able to complete your colonoscopy today without any difficulty. Hopefully it was a comfortable experience. Your prep was great, and I could see everything just fine. In total, I removed 12 polyps today. Everything is quite small, none of them had any worrisome features to the naked eye. All of these will be sent off for testing. I suspect some of them may not even be true polyps as you do have some colonic pseudopolyposis as well. Pseudopolyposis is very common in patients with inflammatory bowel disease. It seems to arise from repeated episodes of inflammation and ulceration with healing. Although pseudopolyposis is associated with colorectal cancers, most clinicians agree that the pseudopolyps themselves are not the problem, rather the underlying inflammatory bowel disease. In that regards, I would plan for next colonoscopy at 5 years unless the other polyps that I removed today shows something different. Once we have the results of the polyp analysis, I will be in touch confirmation, or any changes to that recommendation. 1. If tolerated, consume a soft, low fiber diet for 1-2 days. 2. Do not drive, drink alcohol, operate machinery, make critical decisions, or do activities that require coordination or balance for 24 hours. 3. Because air was put into your colon during the procedure, expelling air from your rectum (passing gas or farting) is normal. 4. You may not have a bowel movement for 1-3 days because of the colonoscopy prep. This is normal. 5. Go directly to the emergency room if you notice any of the following: Develop chills (warm to touch), or if you have a thermometer and your temperature is above 101 Difficulty breathing or difficultly swallowing Persistent vomiting Severe abdominal pain, other than gas cramps Severe chest pain Black, tarry stools Any bleeding ? exceeding one tablespoon 6. Call your physician if the site where your intravenous was started becomes red, swollen, painful, and warm to touch. 7. Your physician has reviewed your pre-procedure medications. Please continue to take those medications as previously ordered. You will be given specific information/education regarding any changes to your medications before leaving. Activity:: Activity as Tolerated Diet:: As Tolerated Discharge Orders Discharge Orders: Discharge Order (Routine); Ordered 08/26/23 Ordered By: Humble Hancock DS: Diagnosis Discharge Diagnosis (1) Encounter for screening colonoscopy: Status: Acute Asessment and Plan: Follow-up on polypectomy results
--- NOTE | 2023-08-26 19:16 | COLE_ITS ---
Date of service: 08/27/23 Time of Service: 08:04 Colonoscopy Report Date of procedure: 08/27/23 Pre-op diagnosis general: screening colonoscopy Post-op diagnosis procedure note: other (Colorectal polyps as well as pseudopolyposis) Procedure: colonoscopy with polypectomy Surgeon: Humble Hancock Anesthesia Type: General:No Airway Estimated blood loss (mL): 10 Pathology: other (3 polyps from 70 cm, 4 polyps at 55 cm, 3 polyps at 35 cm, 2 polyps at 25 cm) Complications: None Disposition: same day Indications: Rahel is a 57 year old woman with a family hisyory of colon cancer who needs her next screening colonoscopy for routine health maintenance. Prep: Miralax/Dulcolax Procedure Start Time: 07:37 Procedure End Time: 07:55 Retraction Time: 12 Findings: Upper rectal, and sigmoid pseudopolyposis; 3 polyps from 70 cm, 4 polyps at 55 cm, 3 polyps at 35 cm, 2 polyps at 25 cm Procedure Description: After the induction of monitored anesthetic care, and with the patient in left lateral decubitus position, I began by performing an external anorectal exam.? Perineum and skin were normal, as was the anal verge.? There was no evidence of external hemorrhoids.? Next, I performed a digital rectal exam.? I did not appreciate any abnormal findings.? Next, I advanced a colonoscope into the rectal vault.? I performed retroflexion.? This appeared normal.? Using insufflation, I then advanced the colonoscope beyond the rectal folds and into the sigmoid colon before advancing towards the cecum.? The scope was noted to be in the cecum by identification of the ileocecal valve and appendiceal orifice.? I then began withdrawing the colonoscope using repeated irrigation as necessary for full evaluation of the colonic mucosa. Narrowband imaging was used to assist with the analysis. Multiple polyps were found between 70 and 25 cm from the anal verge. In total, 12 polyps were removed. All of these were flat, and all removed with cold forceps without any issues. Each polyp was less than 0.5 cm. Towards the midportion of the sigmoid colon down through the upper rectal vault was a segment of pseudopolyposis. Narrowband imaging was used to assist with analysis. 5 of the polyps mentioned above were removed from the segment. The remainder of the pseudopolyposis appeared benign once the scope was withdrawn to the level of the rectum, great care was taken to examine portions of the rectal folds.? Finally, the scope was withdrawn and the patient was brought to the same-day surgery recovery unit as the anesthetic wore off. ?The findings and instructions were shared with the patient prior to discharge. [place] Bowel Prep [place] Bowel Prep Right Colon: 3 Left Colon: 3 Transverse Colon: 3 Total Score: 9
[2023-08-27 06:38] VITALS: BP 91/57; PULSE 84; RESP 18; TEMP 36.5; O2SAT 99
[2023-08-27] MEDS: Lactated Ringers 1,000 ML 80 ML IV (06:53)
--- NOTE | 2023-08-27 07:02 | ANES.PREOP_ITS ---
General Info Date of Service Date Performed: 08/27/23 Height: 5 ft 2 in Weight: 54.1 kg Body Mass Index (BMI): 21.8 Surgical Procedure: Operation Date: 08/27/23 07:35 Proposed Procedure Side Surgeon p Colonoscopy Humble Hancock MD Meds Allergies and Home Medications Allergies Allergy/AdvReac Type Severity Reaction Status Date / Time iodine Allergy Intermediate burning Verified 08/27/23 06:29 and pain in joints Current Visit Medications: Current Medications Generic Name Dose Route Start Last Admin Trade Name Freq PRN Reason Stop Dose Admin Hyoscyamine Sulfate 0.125 mg 08/26/23 19:17 Hyoscyamine 0.125 Mg Sl/Oral/Chew SL 09/25/23 19:16 DIRECTED PRN Ringer's Solution 1,000 mls @ 80 mls/hr 08/27/23 06:00 08/27/23 06:53 IV 08/27/23 23:59 80 mls/hr INFUSION FARHAD Administration IV Miscellaneous Supplies 1 each 08/27/23 06:00 Iv Access IV 08/27/23 23:59 DIRECTED FARHAD Ondansetron HCl 4 mg 08/26/23 19:17 Ondansetron 4 Mg/2 Ml Vial IVP 09/25/23 19:16 Q4H PRN PRN Nausea / Vomiting Sodium Chloride 0 ml 08/27/23 06:00 Normal Saline Flush 10 Ml Syr IV 08/27/23 23:59 PRN PRN Sodium Chloride 0 ml 08/27/23 06:00 Normal Saline 10 Ml Vial IJ 08/27/23 23:59 DIRECTED PRN Sterile Water 0 ml 08/27/23 06:00 Water,Injection,Sterile 10 Ml Vial IJ 08/27/23 23:59 DIRECTED PRN PFSH Active Problems Active Problems: Problem Status Onset Code Encounter for screening colonoscopy Z12.11 Skin lesion of face L98.9 Actinic keratosis of left cheek L57.0 Family history of colon cancer Z80.0 Medical History Medical History History of tobacco use disorder 7.5 packyr hx, quit 2019 Fibroid ~5cm, stable on repeat sono 11/25/21 Abnormal mammogram Ulcerative colitis with rectal bleeding managed with entocort Surgical History Surgical History Hx of tubal ligation Tobacco Smoking/Tobacco Use Status: Former Tobacco Use Passive smoking exposure: Yes Second hand exposure: Yes Alcohol Alcohol Intake: current Alcohol intake frequency: a few times a week Alcohol type: beer Substance Use Substance use: Never Substance use type: does not use Prental History History 4 Para 3 Hx # Term Pregnancies 3 Multiple births Hx # Pregnancies Ectopic pregnancies AB induced 1 Hx Number of Living Children 3 AB spontaneous Past Pregnancies Del. Date GA/Weeks # Preg Succ Route Wgt Sex Labor Lgth Anesth esia Location Prov Complic 04/05/83 10/17/85 40 No vaginal 2296.311 g Male 02/18/87 40 No vaginal 3572.04 g Male 04/18/89 40 No vaginal 4025.632 g Female Delivery Date: 10/17/85 Last Updated by: Mariella Krishna M.D. episiotmy Vital Signs and Lab Results Vital Signs Most Recent Vital Signs in EMR: Most Recent Vital Signs Temp Pulse Resp BP Pulse Ox 36.5 C 84 18 91/57 L 99 08/27/23 06:38 08/27/23 06:38 08/27/23 06:38 08/27/23 06:38 08/27/23 06:38 Lab Results Blood Type / Crossmatch: No Data to Display Complete Blood Count: No Data to Display Complete Metabolic Panel: No Data to Display Liver Function Panel: No Data to Display Coagulation Panel: No Data to Display Cardiac Panel: No Data to Display Arterial Blood Gas: No Data to Display Venous Blood Gas: No Data to Display Pancreas Panel: No Data to Display Thyroid Panel: No Data to Display Infectious Disease: No Data to Display Blood Cultures: No Data to Display Toxicology Panel: No Data to Display Anesthesia Assessment and Plan Anesthesia History Personal History: No History of Anesthesia Complications Family History: No Family History of Anesthesia Complications Exercise Tolerance Exercise Tolerance: Metabolic Equivalents>4 Cardiac & Pulmonary Exam Cardiac Exam: Normal S1/S2 Heart Sounds Pulmonary Exam: Clear Bilateral Breath Sounds Implantable Cardiac Device Does patient have a Pacemaker or an ICD?: No Airway Exam Known Difficult Airway: No Mallampati Class: 1 Mouth Opening: Normal (> 3cm) Thyromental Distance: Greater than 3 cm Neck Range of Motion: Full ROM Neck Circumference: Normal Teeth Condition: Normal Dentition Airway Comments: Misaligned and broken teeth ASA Classification ASA Score: ASA 2 Emergency Case?: No NPO Status NPO Status: NPO Clears >2 hours, Solids >8 hours Anesthesia Plan Resuscitation Status: Full Code Anesthesia Technique: General Anesthesia Airway Planned: Natural Airway Monitors Used: Standard Monitors
[2023-08-27 07:03] VITALS: BMI 21.8
--- NOTE | 2023-08-27 07:46 | BOWEL_PTH ---
PATIENT: Rahel Crow LOC: [facility] U#:[id number] AGE/SX: 57/F ROOM: RE08/27/[address]: Humble Hancock MD : [id number] BED: DIS: 08/27/2023 SPEC #: [id number] RECD: 08/27/23 12:58 STATUS: SUZI RE #: [id number] KENYA: 08/27/23 07:[address]: Humble Hancock DEPT: Surgical Specimen RECD BY: Harriett Doherty ENTERED: 08/27/23 13:00 SP TYPE: Bowel OTHR DR: Sona Edmond Tissues: 1 - BIOPSY BOWEL 2 - BIOPSY BOWEL 3 - BIOPSY BOWEL 4 - BIOPSY BOWEL Procedures: GROSS AND MICRO LEVEL 4 Comments: [id number]
[2023-08-27 08:09] VITALS: BP 78/55; PULSE 66; RESP 16; TEMP 36.6; O2SAT 96
--- NOTE | 2023-08-27 08:09 | W.ANESPOSTOP ---
Postoperative Evaluation Date, Time and Location Date Performed: 08/27/23 Time Performed: 08:09 Patient Location: Day Surgery Unit Vital Signs Most Recent Imported Vital Signs: Most Recent Vital Signs Temp Pulse Resp BP Pulse Ox 36.5 C 84 18 91/57 L 99 08/27/23 06:38 08/27/23 06:38 08/27/23 06:38 08/27/23 06:38 08/27/23 06:38 Pain Score Most Recent Pain Score: Most Recent Pain Score Pain Level 0 08/27/23 06:38 Assessment Mental Status: Awake (Alert & Oriented to Patient Baseline) Airway and Respiratory Function: Patent airway with normal (patient baseline) respiratory exam Cardiovascular Function: Hemodynamically Stable Hydration Status: Adequately Hydrated Nausea & Vomiting: No Nausea or Vomiting Pain: Pt. Denies Any Pain Peripheral Nerve Block: Patient did not receive a nerve block
[2023-08-27 08:18] VITALS: BP 79/56; PULSE 56; RESP 16; TEMP 36.6; O2SAT 98
== END 2023-08-27 09:00 | disposition home or self-care (01) ==
LOC: SUR 06:24
PROVIDERS: PCP Family Medicine; Visit Provider Surgery
PROC: 0DJD8ZZ Inspection of Lower Intestinal Tract, Via Natural or Artificial Opening Endoscopic (ICD-10-PCS; CPT 45378; principal; 2023-08-27 07:30)
DX: Z12.11 Encounter for screening for malignant neoplasm of colon (principal); Z80.0 Family history of malignant neoplasm of digestive organs; K63.5 Polyp of colon
CPT/HCPCS: 45380; 88305; J2001; J2704

== ENCOUNTER 2023-12-03 08:16 | Outpatient (CLI) | payer MEDICAID, SELFPAY ==
[2023-12-03 12:40] LABS: Calculated LDL 146 mg/dL (<100); Cholesterol 225 mg/dL (<200); HDL Cholesterol 65 mg/dL (40-60); Triglyceride 71 mg/dL (<150)
== END 2023-12-03 08:17 | disposition home or self-care (01) ==
PROVIDERS: PCP Family Medicine; Referring Provider Family Medicine; Visit Provider Family Medicine
DX: Z13.6 Encounter for screening for cardiovascular disorders (principal)
CPT/HCPCS: 36415; 80061